=== PATIENT | female | born 1935 | race Two or more races ===

== ENCOUNTER 2018-01-20 20:23 | Inpatient (IN) | payer MEDICARE, BC ==
[2018-01-21 06:08] LABS: ADD UMIC YES; UR ASCORBIC ACID NEGATIVE (NEGATIVE); UR BACTERIA FEW /HPF (NONE SEEN); UR BILIRUBIN (Dip) NEGATIVE (NEGATIVE); UR BLOOD (Dip) NEGATIVE (NEGATIVE); UR CLARITY CLEAR (CLEAR); UR COLOR YELLOW (YELLOW); UR GLUCOSE (Dip) NEGATIVE (NEGATIVE); UR KETONES (Dip) NEGATIVE (NEGATIVE); UR LEUKOCYTE ESTERASE (Dip) NEGATIVE Leu/ul (NEGATIVE); UR NITRITE (Dip) NEGATIVE (NEGATIVE); UR RBC 1 /HPF (0-5); UR SPECIFIC GRAVITY (Dip) 1.009 (1.003-1.030); UR TOTAL PROTEIN (Dip) 2+ mg/dl (NEGATIVE); UR UROBILINOGEN (Dip) NEGATIVE (NEGATIVE); UR WBC 1 /HPF (0-5)
[2018-01-21] MEDS: BISACODYL 10 MG SUPP PR (06:26)
[2018-01-21] MEDS ORDERED: ONDANSETRON 4 MG INJ IV (06:30)
[2018-01-21] MEDS ORDERED: GLUCAGON 1 MG INJ IM (06:30)
[2018-01-21] MEDS ORDERED: GLUCOSE GEL 15 GRAM TUBE BUCCAL (06:30)
[2018-01-21] MEDS ORDERED: GLUCOSE GEL 15 GRAM TUBE PO ×2 (06:30)
[2018-01-21] MEDS ORDERED: MAGNESIUM HYDROXIDE 30ML CUP PO (06:30)
[2018-01-21] MEDS ORDERED: ZOLPIDEM 5 MG TAB PO (06:30)
[2018-01-21] MEDS ORDERED: DEXTROSE 50% 50 ML SYRINGE IV ×2 (06:30)
[2018-01-21 07:00] LABS: ADD MAN DIFF? NO
[2018-01-21] MEDS: Insulin NOVOLOG SS MILD Algorithm (SS with meals and bedtime) SC ×4 (07:05→22:37)
[2018-01-21 07:06] LABS: WHITE BLOOD COUNT 5.9 10^3/ul (4.8-10.8)
[2018-01-21 07:06] LABS: BASOPHILS % 0.3 % (0.0-2.0); EOSINOPHILS # 0.3 10^3/ul (0.0-0.5); EOSINOPHILS % 5.4 % (0.0-7.0); HEMATOCRIT 26.4 % (37.0-47.0); HEMOGLOBIN 8.6 g/dl (12.0-16.0); LYMPHOCYTES # 0.9 10^3/ul (0.8-2.9); LYMPHOCYTES % 14.4 % (15.0-51.0); MEAN CORPUSCULAR HEMOGLOBIN 30.4 pg (29.0-33.0); MEAN CORPUSCULAR HGB CONC 32.6 g/dl (32.0-37.0); MEAN CORPUSCULAR VOLUME 93.3 fl (82.0-101.0); MEAN PLATELET VOLUME 11.5 fl (7.4-10.4); MONOCYTE # 0.8 10^3/ul (0.3-0.9); MONOCYTES % 13.2 % (0.0-11.0); NEUTROPHIL # 3.9 10^3/ul (1.6-7.5); PLATELET COUNT 130 10^3/UL (140-415); RED BLOOD COUNT 2.83 10^6/ul (4.20-5.40); RED CELL DISTRIBUTION WIDTH 17.7 % (11.5-14.5)
[2018-01-21 07:27] LABS: ALANINE AMINOTRANSFERASE 25 IU/L (13-69); ALBUMIN 2.5 g/dl (3.3-4.9); ALKALINE PHOSPHATASE 84 IU/L (42-121); ANION GAP 10 (8-16); ASPARTATE AMINO TRANSFERASE 29 IU/L (15-46); BILIRUBIN,INDIRECT 0.6 mg/dl (0-1.1); BILIRUBIN,TOTAL 0.6 mg/dl (0.2-1.3); BLOOD UREA NITROGEN 40 mg/dl (7-20); CALCIUM 7.4 mg/dl (8.4-10.2); CARBON DIOXIDE 30 mmol/L (21-31); CHLORIDE 99 mmol/L (97-110); CREATININE 2.15 mg/dl (0.44-1.00); GLUCOSE 104 mg/dl (70-220); POTASSIUM 4.2 mmol/L (3.5-5.1); SODIUM 135 mmol/L (135-144)
[2018-01-21] MEDS: CLOPIDOGREL 75 MG TAB PO (09:29)
[2018-01-21] MEDS: FUROSEMIDE 20 MG TAB PO (09:30)
[2018-01-21] MEDS: traMADol 50 MG TAB PO (09:31)
[2018-01-21] MEDS: ISOSORBIDE MONONITRATE(SR)30 MG TAB PO (09:31)
[2018-01-21] MEDS: LINAGLIPTIN 5 MG TABLET PO (09:31)
[2018-01-21] MEDS: DOCUSATE SODIUM 100 MG CAP PO ×2 (09:31→20:32)
[2018-01-21] MEDS: HYDROCODONE/APAP (5/325) TAB PO (10:52)
[2018-01-21] MEDS: PRAMIPEXOLE 0.25 MG TAB PO (20:32)
[2018-01-21] MEDS: BALSAM PERU/CASTOR OIL 60 GM TUBE TOP (20:32)
[2018-01-21] MEDS: ACETAMINOPHEN 325 MG TAB PO (20:43)
[2018-01-22] MEDS: ACCUCHECK 2 AM XX (02:00)
[2018-01-22 07:03] LABS: ADD MAN DIFF? NO
[2018-01-22] MEDS: Insulin NOVOLOG SS MILD Algorithm (SS with meals and bedtime) SC ×4 (07:05→20:23)
[2018-01-22 07:11] LABS: WHITE BLOOD COUNT 7.3 10^3/ul (4.8-10.8)
[2018-01-22 07:11] LABS: BASOPHILS % 0.3 % (0.0-2.0); EOSINOPHILS # 0.3 10^3/ul (0.0-0.5); EOSINOPHILS % 4.6 % (0.0-7.0); HEMATOCRIT 25.2 % (37.0-47.0); HEMOGLOBIN 8.2 g/dl (12.0-16.0); LYMPHOCYTES # 1.4 10^3/ul (0.8-2.9); LYMPHOCYTES % 18.6 % (15.0-51.0); MEAN CORPUSCULAR HEMOGLOBIN 30.5 pg (29.0-33.0); MEAN CORPUSCULAR HGB CONC 32.5 g/dl (32.0-37.0); MEAN CORPUSCULAR VOLUME 93.7 fl (82.0-101.0); MEAN PLATELET VOLUME 11.5 fl (7.4-10.4); MONOCYTES % 14.2 % (0.0-11.0); NEUTROPHIL # 4.5 10^3/ul (1.6-7.5); NEUTROPHILS % 61.3 % (39.0-77.0); PLATELET COUNT 128 10^3/UL (140-415); RED BLOOD COUNT 2.69 10^6/ul (4.20-5.40); RED CELL DISTRIBUTION WIDTH 17.8 % (11.5-14.5)
[2018-01-22 07:50] LABS: ANION GAP 12 (8-16); BLOOD UREA NITROGEN 50 mg/dl (7-20); CALCIUM 7.3 mg/dl (8.4-10.2); CARBON DIOXIDE 26 mmol/L (21-31); CHLORIDE 98 mmol/L (97-110); CREATININE 2.85 mg/dl (0.44-1.00); GLUCOSE 89 mg/dl (70-220); MAGNESIUM 1.9 mg/dl (1.7-2.5); POTASSIUM 4.5 mmol/L (3.5-5.1); SODIUM 131 mmol/L (135-144)
[2018-01-22] MEDS: CLOPIDOGREL 75 MG TAB PO (08:39)
[2018-01-22] MEDS: ISOSORBIDE MONONITRATE(SR)30 MG TAB PO (08:39)
[2018-01-22] MEDS: DOCUSATE SODIUM 100 MG CAP PO ×2 (08:39→20:22)
[2018-01-22] MEDS: FUROSEMIDE 20 MG TAB PO (08:39)
[2018-01-22] MEDS: BALSAM PERU/CASTOR OIL 60 GM TUBE TOP ×2 (08:40→20:25)
[2018-01-22] MEDS: LINAGLIPTIN 5 MG TABLET PO (08:40)
[2018-01-22] MEDS: HYDROCODONE/APAP (5/325) TAB PO ×4 (09:04→20:22)
[2018-01-22] MEDS: INFLUENZA VIRUS VACCINE 0.5 ML (DISPENSING) IM* (09:27)
[2018-01-22] MEDS: MUPIROCIN 2% 22 GM OINT TOP (13:55)
[2018-01-22] MEDS: PRAMIPEXOLE 0.25 MG TAB PO (20:23)
[2018-01-23] MEDS: ACCUCHECK 2 AM XX (02:00)
[2018-01-23 06:38] LABS: ADD MAN DIFF? NO
[2018-01-23 06:48] LABS: BASOPHILS % 0.4 % (0.0-2.0); EOSINOPHILS # 0.3 10^3/ul (0.0-0.5); EOSINOPHILS % 4.5 % (0.0-7.0); HEMATOCRIT 25.5 % (37.0-47.0); HEMOGLOBIN 8.4 g/dl (12.0-16.0); LYMPHOCYTES # 1.2 10^3/ul (0.8-2.9); LYMPHOCYTES % 17.7 % (15.0-51.0); MEAN CORPUSCULAR HEMOGLOBIN 30.8 pg (29.0-33.0); MEAN CORPUSCULAR HGB CONC 32.9 g/dl (32.0-37.0); MEAN CORPUSCULAR VOLUME 93.4 fl (82.0-101.0); MEAN PLATELET VOLUME 11.4 fl (7.4-10.4); MONOCYTE # 0.8 10^3/ul (0.3-0.9); NEUTROPHIL # 4.5 10^3/ul (1.6-7.5); NEUTROPHILS % 64.7 % (39.0-77.0); PLATELET COUNT 141 10^3/UL (140-415); RED BLOOD COUNT 2.73 10^6/ul (4.20-5.40); RED CELL DISTRIBUTION WIDTH 17.5 % (11.5-14.5)
[2018-01-23 06:48] LABS: WHITE BLOOD COUNT 6.9 10^3/ul (4.8-10.8)
[2018-01-23 07:09] LABS: ANION GAP 13 (8-16); BLOOD UREA NITROGEN 66 mg/dl (7-20); CALCIUM 7.5 mg/dl (8.4-10.2); CARBON DIOXIDE 28 mmol/L (21-31); CHLORIDE 96 mmol/L (97-110); GLUCOSE 121 mg/dl (70-220); MAGNESIUM 1.9 mg/dl (1.7-2.5); POTASSIUM 4.4 mmol/L (3.5-5.1); SODIUM 133 mmol/L (135-144)
[2018-01-23] MEDS: morphine 2 MG INJ IV (08:14)
[2018-01-23] MEDS: Insulin NOVOLOG SS MILD Algorithm (SS with meals and bedtime) SC ×4 (08:16→20:49)
[2018-01-23] MEDS: ISOSORBIDE MONONITRATE(SR)30 MG TAB PO (09:11)
[2018-01-23] MEDS: CLOPIDOGREL 75 MG TAB PO (09:11)
[2018-01-23] MEDS: DOCUSATE SODIUM 100 MG CAP PO ×2 (09:11→20:47)
[2018-01-23] MEDS: FUROSEMIDE 20 MG TAB PO (09:11)
[2018-01-23] MEDS: traMADol 50 MG TAB PO (09:12)
[2018-01-23] MEDS: MUPIROCIN 2% 22 GM OINT TOP (09:13)
[2018-01-23] MEDS: BALSAM PERU/CASTOR OIL 60 GM TUBE TOP ×2 (09:13→20:41)
[2018-01-23] MEDS: LINAGLIPTIN 5 MG TABLET PO (09:15)
[2018-01-23] MEDS: HYDROCODONE/APAP (5/325) TAB PO (14:48)
[2018-01-23] MEDS: PRAMIPEXOLE 0.25 MG TAB PO (20:47)
[2018-01-24] MEDS: ACCUCHECK 2 AM XX (02:00)
[2018-01-24 06:29] LABS: ADD MAN DIFF? NO
[2018-01-24 06:36] LABS: BASOPHILS % 0.3 % (0.0-2.0); EOSINOPHILS # 0.3 10^3/ul (0.0-0.5); EOSINOPHILS % 3.5 % (0.0-7.0); HEMATOCRIT 25.6 % (37.0-47.0); HEMOGLOBIN 8.4 g/dl (12.0-16.0); LYMPHOCYTES # 1.5 10^3/ul (0.8-2.9); LYMPHOCYTES % 19.8 % (15.0-51.0); MEAN CORPUSCULAR HEMOGLOBIN 30.8 pg (29.0-33.0); MEAN CORPUSCULAR HGB CONC 32.8 g/dl (32.0-37.0); MEAN CORPUSCULAR VOLUME 93.8 fl (82.0-101.0); MONOCYTE # 0.8 10^3/ul (0.3-0.9); MONOCYTES % 10.5 % (0.0-11.0); NEUTROPHILS % 65.5 % (39.0-77.0); PLATELET COUNT 155 10^3/UL (140-415); RED BLOOD COUNT 2.73 10^6/ul (4.20-5.40); RED CELL DISTRIBUTION WIDTH 17.7 % (11.5-14.5)
[2018-01-24 06:36] LABS: WHITE BLOOD COUNT 7.6 10^3/ul (4.8-10.8)
[2018-01-24] MEDS: Insulin NOVOLOG SS MILD Algorithm (SS with meals and bedtime) SC ×4 (07:05→20:47)
[2018-01-24 07:13] LABS: ANION GAP 12 (8-16); BLOOD UREA NITROGEN 68 mg/dl (7-20); CALCIUM 7.5 mg/dl (8.4-10.2); CARBON DIOXIDE 25 mmol/L (21-31); CHLORIDE 101 mmol/L (97-110); CREATININE 3.35 mg/dl (0.44-1.00); GLUCOSE 108 mg/dl (70-220); MAGNESIUM 1.9 mg/dl (1.7-2.5); PHOSPHORUS 4.9 mg/dl (2.5-4.9); POTASSIUM 4.5 mmol/L (3.5-5.1); SODIUM 133 mmol/L (135-144)
[2018-01-24] MEDS: BALSAM PERU/CASTOR OIL 60 GM TUBE TOP ×2 (09:00→23:02)
[2018-01-24] MEDS: ISOSORBIDE MONONITRATE(SR)30 MG TAB PO (09:26)
[2018-01-24] MEDS: DOCUSATE SODIUM 100 MG CAP PO ×2 (09:26→20:44)
[2018-01-24] MEDS: HYDROCODONE/APAP (5/325) TAB PO ×3 (09:26→17:25)
[2018-01-24] MEDS: LINAGLIPTIN 5 MG TABLET PO (09:27)
[2018-01-24] MEDS: CLOPIDOGREL 75 MG TAB PO (09:27)
[2018-01-24] MEDS: FUROSEMIDE 40 MG TAB PO (09:28)
[2018-01-24] MEDS: MUPIROCIN 2% 22 GM OINT TOP (09:29)
[2018-01-24] MEDS: EPOETIN 3000 UNITS/1 ML INJ (ESRD) SC (17:30)
[2018-01-24] MEDS: PRAMIPEXOLE 0.25 MG TAB PO (20:44)
[2018-01-25] MEDS: ACCUCHECK 2 AM XX (02:00)
[2018-01-25 06:34] LABS: ADD MAN DIFF? NO
[2018-01-25 06:39] LABS: WHITE BLOOD COUNT 7.5 10^3/ul (4.8-10.8)
[2018-01-25 06:39] LABS: BASOPHILS % 0.4 % (0.0-2.0); EOSINOPHILS # 0.3 10^3/ul (0.0-0.5); EOSINOPHILS % 3.9 % (0.0-7.0); HEMATOCRIT 26.3 % (37.0-47.0); HEMOGLOBIN 8.7 g/dl (12.0-16.0); LYMPHOCYTES # 1.3 10^3/ul (0.8-2.9); LYMPHOCYTES % 17.2 % (15.0-51.0); MEAN CORPUSCULAR HEMOGLOBIN 30.7 pg (29.0-33.0); MEAN CORPUSCULAR HGB CONC 33.1 g/dl (32.0-37.0); MEAN CORPUSCULAR VOLUME 92.9 fl (82.0-101.0); MEAN PLATELET VOLUME 10.9 fl (7.4-10.4); MONOCYTE # 0.9 10^3/ul (0.3-0.9); MONOCYTES % 11.9 % (0.0-11.0); NEUTROPHIL # 4.9 10^3/ul (1.6-7.5); NEUTROPHILS % 65.9 % (39.0-77.0); PLATELET COUNT 175 10^3/UL (140-415); RED BLOOD COUNT 2.83 10^6/ul (4.20-5.40); RED CELL DISTRIBUTION WIDTH 17.5 % (11.5-14.5)
[2018-01-25 07:01] LABS: ANION GAP 15 (8-16); BLOOD UREA NITROGEN 73 mg/dl (7-20); CALCIUM 7.9 mg/dl (8.4-10.2); CARBON DIOXIDE 24 mmol/L (21-31); CHLORIDE 103 mmol/L (97-110); CREATININE 3.43 mg/dl (0.44-1.00); GLUCOSE 110 mg/dl (70-220); PHOSPHORUS 5.2 mg/dl (2.5-4.9); POTASSIUM 4.6 mmol/L (3.5-5.1); SODIUM 137 mmol/L (135-144)
[2018-01-25] MEDS: Insulin NOVOLOG SS MILD Algorithm (SS with meals and bedtime) SC ×4 (07:05→20:20)
[2018-01-25] MEDS: HYDROCODONE/APAP (5/325) TAB PO ×3 (08:18→20:19)
[2018-01-25] MEDS: CLOPIDOGREL 75 MG TAB PO (08:18)
[2018-01-25] MEDS: FUROSEMIDE 40 MG TAB PO (08:18)
[2018-01-25] MEDS: ISOSORBIDE MONONITRATE(SR)30 MG TAB PO (08:18)
[2018-01-25] MEDS: DOCUSATE SODIUM 100 MG CAP PO ×2 (08:19→20:19)
[2018-01-25] MEDS: LINAGLIPTIN 5 MG TABLET PO (08:20)
[2018-01-25] MEDS: MUPIROCIN 2% 22 GM OINT TOP (08:20)
[2018-01-25] MEDS: BALSAM PERU/CASTOR OIL 60 GM TUBE TOP ×2 (08:21→20:20)
[2018-01-25] MEDS: PRAMIPEXOLE 0.25 MG TAB PO (20:18)
[2018-01-26] MEDS: ACCUCHECK 2 AM XX (03:00)
[2018-01-26] MEDS: Insulin NOVOLOG SS MILD Algorithm (SS with meals and bedtime) SC ×4 (07:05→20:27)
[2018-01-26 07:19] LABS: ANION GAP 15 (8-16); BLOOD UREA NITROGEN 75 mg/dl (7-20); CARBON DIOXIDE 22 mmol/L (21-31); CHLORIDE 104 mmol/L (97-110); CREATININE 3.31 mg/dl (0.44-1.00); GLUCOSE 90 mg/dl (70-220); PHOSPHORUS 5.5 mg/dl (2.5-4.9); POTASSIUM 4.6 mmol/L (3.5-5.1); SODIUM 136 mmol/L (135-144)
[2018-01-26] MEDS: FUROSEMIDE 40 MG TAB PO (09:25)
[2018-01-26] MEDS: HYDROCODONE/APAP (5/325) TAB PO (09:26)
[2018-01-26] MEDS: CLOPIDOGREL 75 MG TAB PO (09:26)
[2018-01-26] MEDS: LINAGLIPTIN 5 MG TABLET PO (09:27)
[2018-01-26] MEDS: DOCUSATE SODIUM 100 MG CAP PO ×2 (09:27→20:20)
[2018-01-26] MEDS: ISOSORBIDE MONONITRATE(SR)30 MG TAB PO (09:27)
[2018-01-26] MEDS: MUPIROCIN 2% 22 GM OINT TOP (09:28)
[2018-01-26] MEDS: BALSAM PERU/CASTOR OIL 60 GM TUBE TOP ×2 (09:28→20:27)
[2018-01-26] MEDS: SEVELAMER 400 MG TAB PO ×2 (15:02→17:50)
[2018-01-26] MEDS: LACTULOSE 30ML CUP PO (17:50)
[2018-01-26] MEDS: PRAMIPEXOLE 0.25 MG TAB PO (20:20)
[2018-01-27] MEDS: ACCUCHECK 2 AM XX (02:00)
[2018-01-27 08:09] LABS: ANION GAP 13 (8-16); BLOOD UREA NITROGEN 73 mg/dl (7-20); CALCIUM 7.7 mg/dl (8.4-10.2); CARBON DIOXIDE 22 mmol/L (21-31); CHLORIDE 106 mmol/L (97-110); CREATININE 3.15 mg/dl (0.44-1.00); GLUCOSE 93 mg/dl (70-220); MAGNESIUM 1.9 mg/dl (1.7-2.5); PHOSPHORUS 5.3 mg/dl (2.5-4.9); POTASSIUM 4.4 mmol/L (3.5-5.1); SODIUM 137 mmol/L (135-144)
[2018-01-27] MEDS: Insulin NOVOLOG SS MILD Algorithm (SS with meals and bedtime) SC ×4 (08:10→21:00)
[2018-01-27] MEDS: SEVELAMER 400 MG TAB PO ×3 (08:13→17:40)
[2018-01-27] MEDS: HYDROCODONE/APAP (5/325) TAB PO (08:13)
[2018-01-27] MEDS: FUROSEMIDE 40 MG TAB PO (08:14)
[2018-01-27] MEDS: CLOPIDOGREL 75 MG TAB PO (08:14)
[2018-01-27] MEDS: LINAGLIPTIN 5 MG TABLET PO (08:14)
[2018-01-27] MEDS: DOCUSATE SODIUM 100 MG CAP PO ×2 (08:14→20:32)
[2018-01-27] MEDS: MUPIROCIN 2% 22 GM OINT TOP (08:15)
[2018-01-27] MEDS: BALSAM PERU/CASTOR OIL 60 GM TUBE TOP ×2 (08:15→20:32)
[2018-01-27] MEDS: ISOSORBIDE MONONITRATE(SR)30 MG TAB PO (09:00)
[2018-01-27] MEDS: EPOETIN 3000 UNITS/1 ML INJ (ESRD) SC (17:28)
[2018-01-27] MEDS: PRAMIPEXOLE 0.25 MG TAB PO (20:27)
[2018-01-28] MEDS: ACCUCHECK 2 AM XX (02:00)
[2018-01-28] MEDS: HYDROCODONE/APAP (5/325) TAB PO (08:08)
[2018-01-28] MEDS: Insulin NOVOLOG SS MILD Algorithm (SS with meals and bedtime) SC ×4 (08:23→20:52)
[2018-01-28] MEDS: LINAGLIPTIN 5 MG TABLET PO (09:53)
[2018-01-28] MEDS: DOCUSATE SODIUM 100 MG CAP PO ×2 (09:53→20:53)
[2018-01-28] MEDS: CLOPIDOGREL 75 MG TAB PO (09:54)
[2018-01-28] MEDS: FUROSEMIDE 40 MG TAB PO (09:54)
[2018-01-28] MEDS: SEVELAMER 400 MG TAB PO ×3 (09:54→18:11)
[2018-01-28] MEDS: ISOSORBIDE MONONITRATE(SR)30 MG TAB PO (09:54)
[2018-01-28] MEDS: MUPIROCIN 2% 22 GM OINT TOP (09:55)
[2018-01-28] MEDS: BALSAM PERU/CASTOR OIL 60 GM TUBE TOP ×2 (09:55→20:53)
[2018-01-28] MEDS: PRAMIPEXOLE 0.25 MG TAB PO (20:57)
[2018-01-29] MEDS: ACCUCHECK 2 AM XX (02:00)
[2018-01-29] MEDS: Insulin NOVOLOG SS MILD Algorithm (SS with meals and bedtime) SC ×4 (07:05→21:00)
[2018-01-29] MEDS: SEVELAMER 400 MG TAB PO ×3 (08:23→17:10)
[2018-01-29] MEDS: LINAGLIPTIN 5 MG TABLET PO (08:55)
[2018-01-29] MEDS: ISOSORBIDE MONONITRATE(SR)30 MG TAB PO (08:55)
[2018-01-29] MEDS: HYDROCODONE/APAP (5/325) TAB PO (08:55)
[2018-01-29] MEDS: DOCUSATE SODIUM 100 MG CAP PO ×2 (08:55→21:00)
[2018-01-29] MEDS: CLOPIDOGREL 75 MG TAB PO (08:56)
[2018-01-29] MEDS: LACTULOSE 30ML CUP PO (08:56)
[2018-01-29] MEDS: FUROSEMIDE 40 MG TAB PO (08:56)
[2018-01-29] MEDS: BALSAM PERU/CASTOR OIL 60 GM TUBE TOP ×2 (08:59→20:50)
[2018-01-29] MEDS: MUPIROCIN 2% 22 GM OINT TOP (08:59)
[2018-01-29 09:00] LABS: HEMOGLOBIN 8.6 g/dl (12.0-16.0)
[2018-01-29 09:00] LABS: HEMATOCRIT 26.3 % (37.0-47.0)
[2018-01-29] MEDS: EPOETIN 3000 UNITS/1 ML INJ (ESRD) SC (17:10)
[2018-01-29] MEDS: PRAMIPEXOLE 0.25 MG TAB PO (20:48)
[2018-01-30] MEDS: ACCUCHECK 2 AM XX (02:00)
[2018-01-30] MEDS: traMADol 50 MG TAB PO ×2 (05:36→11:37)
[2018-01-30 07:55] LABS: ADD MAN DIFF? NO
[2018-01-30] MEDS: Insulin NOVOLOG SS MILD Algorithm (SS with meals and bedtime) SC ×4 (08:00→20:49)
[2018-01-30 08:06] LABS: WHITE BLOOD COUNT 5.5 10^3/ul (4.8-10.8)
[2018-01-30 08:06] LABS: BASOPHILS % 0.7 % (0.0-2.0); EOSINOPHILS # 0.3 10^3/ul (0.0-0.5); EOSINOPHILS % 5.3 % (0.0-7.0); HEMATOCRIT 26.4 % (37.0-47.0); HEMOGLOBIN 8.5 g/dl (12.0-16.0); LYMPHOCYTES % 18.2 % (15.0-51.0); MEAN CORPUSCULAR HEMOGLOBIN 29.9 pg (29.0-33.0); MEAN CORPUSCULAR HGB CONC 32.2 g/dl (32.0-37.0); MEAN PLATELET VOLUME 10.7 fl (7.4-10.4); MONOCYTE # 0.7 10^3/ul (0.3-0.9); NEUTROPHIL # 3.5 10^3/ul (1.6-7.5); NEUTROPHILS % 63.6 % (39.0-77.0); PLATELET COUNT 208 10^3/UL (140-415); RED BLOOD COUNT 2.84 10^6/ul (4.20-5.40); RED CELL DISTRIBUTION WIDTH 17.3 % (11.5-14.5)
[2018-01-30] MEDS: SEVELAMER 400 MG TAB PO ×3 (08:33→17:08)
[2018-01-30 08:34] LABS: ANION GAP 20 (8-16); BLOOD UREA NITROGEN 79 mg/dl (7-20); CALCIUM 7.9 mg/dl (8.4-10.2); CARBON DIOXIDE 18 mmol/L (21-31); CHLORIDE 108 mmol/L (97-110); CREATININE 3.28 mg/dl (0.44-1.00); GLUCOSE 104 mg/dl (70-220); PHOSPHORUS 5.8 mg/dl (2.5-4.9); POTASSIUM 4.8 mmol/L (3.5-5.1); SODIUM 141 mmol/L (135-144)
[2018-01-30] MEDS: DOCUSATE SODIUM 100 MG CAP PO ×2 (08:34→20:47)
[2018-01-30] MEDS: LINAGLIPTIN 5 MG TABLET PO (08:36)
[2018-01-30] MEDS: CLOPIDOGREL 75 MG TAB PO (08:36)
[2018-01-30] MEDS: FUROSEMIDE 40 MG TAB PO (08:36)
[2018-01-30] MEDS: ISOSORBIDE MONONITRATE(SR)30 MG TAB PO (08:36)
[2018-01-30] MEDS: MUPIROCIN 2% 22 GM OINT TOP ×3 (08:37→15:04)
[2018-01-30] MEDS: BALSAM PERU/CASTOR OIL 60 GM TUBE TOP ×2 (08:37→20:50)
[2018-01-30] MEDS: PRAMIPEXOLE 0.25 MG TAB PO (20:46)
[2018-01-30] MEDS: LACTULOSE 30ML CUP PO (20:52)
[2018-01-31] MEDS: ACCUCHECK 2 AM XX (02:00)
[2018-01-31 06:18] LABS: HEMATOCRIT 24.8 % (37.0-47.0)
[2018-01-31] MEDS: Insulin NOVOLOG SS MILD Algorithm (SS with meals and bedtime) SC ×4 (07:05→20:46)
[2018-01-31] MEDS: DOCUSATE SODIUM 100 MG CAP PO ×2 (09:00→20:38)
[2018-01-31] MEDS: MUPIROCIN 2% 22 GM OINT TOP (09:00)
[2018-01-31] MEDS: BALSAM PERU/CASTOR OIL 60 GM TUBE TOP ×2 (09:00→20:38)
[2018-01-31] MEDS: SEVELAMER 400 MG TAB PO ×3 (09:44→18:54)
[2018-01-31] MEDS: CLOPIDOGREL 75 MG TAB PO (09:45)
[2018-01-31] MEDS: ISOSORBIDE MONONITRATE(SR)30 MG TAB PO (09:45)
[2018-01-31] MEDS: FUROSEMIDE 40 MG TAB PO (09:46)
[2018-01-31] MEDS: LINAGLIPTIN 5 MG TABLET PO (09:46)
[2018-01-31] MEDS: ACETAMINOPHEN 325 MG TAB PO (10:10)
[2018-01-31] MEDS: EPOETIN 3000 UNITS/1 ML INJ (ESRD) SC (18:56)
[2018-01-31] MEDS: PRAMIPEXOLE 0.25 MG TAB PO (20:38)
[2018-02-01] MEDS: ACCUCHECK 2 AM XX (02:00)
[2018-02-01] MEDS: Insulin NOVOLOG SS MILD Algorithm (SS with meals and bedtime) SC ×4 (07:05→20:51)
[2018-02-01 07:15] LABS: ADD MAN DIFF? NO
[2018-02-01 07:19] LABS: BASOPHILS % 0.6 % (0.0-2.0); EOSINOPHILS # 0.3 10^3/ul (0.0-0.5); EOSINOPHILS % 6.3 % (0.0-7.0); HEMATOCRIT 24.7 % (37.0-47.0); HEMOGLOBIN 7.9 g/dl (12.0-16.0); LYMPHOCYTES # 1.2 10^3/ul (0.8-2.9); LYMPHOCYTES % 25.5 % (15.0-51.0); MEAN CORPUSCULAR HEMOGLOBIN 29.9 pg (29.0-33.0); MEAN CORPUSCULAR VOLUME 93.6 fl (82.0-101.0); MEAN PLATELET VOLUME 10.9 fl (7.4-10.4); MONOCYTE # 0.7 10^3/ul (0.3-0.9); MONOCYTES % 13.8 % (0.0-11.0); NEUTROPHIL # 2.6 10^3/ul (1.6-7.5); NEUTROPHILS % 53.6 % (39.0-77.0); PLATELET COUNT 238 10^3/UL (140-415); RED BLOOD COUNT 2.64 10^6/ul (4.20-5.40)
[2018-02-01 07:19] LABS: WHITE BLOOD COUNT 4.8 10^3/ul (4.8-10.8)
[2018-02-01 07:51] LABS: ANION GAP 19 (8-16); BLOOD UREA NITROGEN 81 mg/dl (7-20); CALCIUM 8.1 mg/dl (8.4-10.2); CARBON DIOXIDE 18 mmol/L (21-31); CHLORIDE 108 mmol/L (97-110); CREATININE 3.43 mg/dl (0.44-1.00); GLUCOSE 89 mg/dl (70-220); MAGNESIUM 1.9 mg/dl (1.7-2.5); PHOSPHORUS 5.9 mg/dl (2.5-4.9); POTASSIUM 4.8 mmol/L (3.5-5.1); SODIUM 140 mmol/L (135-144)
[2018-02-01] MEDS: DOCUSATE SODIUM 100 MG CAP PO ×2 (08:23→20:25)
[2018-02-01] MEDS: LINAGLIPTIN 5 MG TABLET PO (08:24)
[2018-02-01] MEDS: CLOPIDOGREL 75 MG TAB PO (08:24)
[2018-02-01] MEDS: FUROSEMIDE 40 MG TAB PO (08:24)
[2018-02-01] MEDS: SEVELAMER 400 MG TAB PO ×3 (08:24→17:36)
[2018-02-01] MEDS: ISOSORBIDE MONONITRATE(SR)30 MG TAB PO (08:25)
[2018-02-01] MEDS: BALSAM PERU/CASTOR OIL 60 GM TUBE TOP ×2 (08:26→20:51)
[2018-02-01] MEDS: MUPIROCIN 2% 22 GM OINT TOP (08:27)
[2018-02-01] MEDS: PRAMIPEXOLE 0.25 MG TAB PO (20:25)
[2018-02-02] MEDS: ACCUCHECK 2 AM XX (02:00)
[2018-02-02] MEDS: Insulin NOVOLOG SS MILD Algorithm (SS with meals and bedtime) SC ×4 (08:15→21:07)
[2018-02-02] MEDS: FUROSEMIDE 40 MG TAB PO (08:22)
[2018-02-02] MEDS: CLOPIDOGREL 75 MG TAB PO (08:22)
[2018-02-02] MEDS: HYDROCODONE/APAP (5/325) TAB PO ×2 (08:22→12:39)
[2018-02-02] MEDS: SEVELAMER 400 MG TAB PO ×3 (08:22→17:44)
[2018-02-02] MEDS: ISOSORBIDE MONONITRATE(SR)30 MG TAB PO (08:23)
[2018-02-02] MEDS: LINAGLIPTIN 5 MG TABLET PO (08:23)
[2018-02-02] MEDS: DOCUSATE SODIUM 100 MG CAP PO ×2 (08:23→21:03)
[2018-02-02] MEDS: BALSAM PERU/CASTOR OIL 60 GM TUBE TOP ×2 (08:24→21:00)
[2018-02-02] MEDS: MUPIROCIN 2% 22 GM OINT TOP (09:00)
[2018-02-02] MEDS: PRAMIPEXOLE 0.25 MG TAB PO (21:03)
[2018-02-03] MEDS: ACCUCHECK 2 AM XX (02:00)
[2018-02-03] MEDS: Insulin NOVOLOG SS MILD Algorithm (SS with meals and bedtime) SC ×4 (08:10→21:00)
[2018-02-03] MEDS: SEVELAMER 400 MG TAB PO ×3 (08:11→18:50)
[2018-02-03] MEDS: FUROSEMIDE 40 MG TAB PO (08:45)
[2018-02-03] MEDS: CLOPIDOGREL 75 MG TAB PO (08:46)
[2018-02-03] MEDS: DOCUSATE SODIUM 100 MG CAP PO ×2 (08:46→21:00)
[2018-02-03] MEDS: ISOSORBIDE MONONITRATE(SR)30 MG TAB PO (08:46)
[2018-02-03] MEDS: LINAGLIPTIN 5 MG TABLET PO (08:46)
[2018-02-03] MEDS: HYDROCODONE/APAP (5/325) TAB PO (08:48)
[2018-02-03] MEDS: BALSAM PERU/CASTOR OIL 60 GM TUBE TOP ×2 (09:00→21:29)
[2018-02-03] MEDS: MUPIROCIN 2% 22 GM OINT TOP (09:00)
[2018-02-03] MEDS: LACTULOSE 30ML CUP PO (12:25)
[2018-02-03] MEDS: EPOETIN 3000 UNITS/1 ML INJ (ESRD) SC (18:51)
[2018-02-03] MEDS: traMADol 50 MG TAB PO (21:28)
[2018-02-03] MEDS: PRAMIPEXOLE 0.25 MG TAB PO (21:28)
[2018-02-04] MEDS: ACCUCHECK 2 AM XX ×2 (02:00→23:36)
[2018-02-04 07:15] LABS: ADD MAN DIFF? NO
[2018-02-04] MEDS: Insulin NOVOLOG SS MILD Algorithm (SS with meals and bedtime) SC ×4 (08:00→20:32)
[2018-02-04] MEDS: ISOSORBIDE MONONITRATE(SR)30 MG TAB PO (08:06)
[2018-02-04] MEDS: SEVELAMER 400 MG TAB PO ×3 (08:06→17:21)
[2018-02-04] MEDS: DOCUSATE SODIUM 100 MG CAP PO ×2 (08:06→20:22)
[2018-02-04] MEDS: LINAGLIPTIN 5 MG TABLET PO (08:07)
[2018-02-04] MEDS: CLOPIDOGREL 75 MG TAB PO (08:07)
[2018-02-04] MEDS: FUROSEMIDE 40 MG TAB PO (08:07)
[2018-02-04 08:08] LABS: ANION GAP 17 (8-16); BLOOD UREA NITROGEN 69 mg/dl (7-20); CALCIUM 8.3 mg/dl (8.4-10.2); CARBON DIOXIDE 18 mmol/L (21-31); CHLORIDE 112 mmol/L (97-110); GLUCOSE 85 mg/dl (70-220); MAGNESIUM 1.8 mg/dl (1.7-2.5); PHOSPHORUS 4.6 mg/dl (2.5-4.9); POTASSIUM 4.8 mmol/L (3.5-5.1); SODIUM 142 mmol/L (135-144)
[2018-02-04] MEDS: BALSAM PERU/CASTOR OIL 60 GM TUBE TOP ×2 (08:08→20:23)
[2018-02-04] MEDS: MUPIROCIN 2% 22 GM OINT TOP (08:08)
[2018-02-04 08:16] LABS: WHITE BLOOD COUNT 4.9 10^3/ul (4.8-10.8)
[2018-02-04 08:16] LABS: BASOPHIL # 0.1 10^3/ul (0.0-0.1); BASOPHILS % 1.2 % (0.0-2.0); EOSINOPHILS # 0.4 10^3/ul (0.0-0.5); EOSINOPHILS % 7.6 % (0.0-7.0); HEMATOCRIT 29.4 % (37.0-47.0); HEMOGLOBIN 9.3 g/dl (12.0-16.0); LYMPHOCYTES # 1.3 10^3/ul (0.8-2.9); LYMPHOCYTES % 26.3 % (15.0-51.0); MEAN CORPUSCULAR HEMOGLOBIN 29.5 pg (29.0-33.0); MEAN CORPUSCULAR HGB CONC 31.6 g/dl (32.0-37.0); MEAN CORPUSCULAR VOLUME 93.3 fl (82.0-101.0); MEAN PLATELET VOLUME 10.7 fl (7.4-10.4); MONOCYTE # 0.6 10^3/ul (0.3-0.9); MONOCYTES % 12.7 % (0.0-11.0); NEUTROPHIL # 2.5 10^3/ul (1.6-7.5); PLATELET COUNT 288 10^3/UL (140-415); RED BLOOD COUNT 3.15 10^6/ul (4.20-5.40); RED CELL DISTRIBUTION WIDTH 16.9 % (11.5-14.5)
[2018-02-04] MEDS: traMADol 50 MG TAB PO ×2 (08:16→20:26)
[2018-02-04] MEDS: HYDROCODONE/APAP (5/325) TAB PO (12:59)
[2018-02-04] MEDS: PRAMIPEXOLE 0.25 MG TAB PO (20:23)
[2018-02-05] MEDS: Insulin NOVOLOG SS MILD Algorithm (SS with meals and bedtime) SC ×4 (08:10→21:38)
[2018-02-05] MEDS: SEVELAMER 400 MG TAB PO ×3 (08:16→17:28)
[2018-02-05] MEDS: CLOPIDOGREL 75 MG TAB PO (08:16)
[2018-02-05] MEDS: LINAGLIPTIN 5 MG TABLET PO (08:16)
[2018-02-05] MEDS: ISOSORBIDE MONONITRATE(SR)30 MG TAB PO (08:16)
[2018-02-05] MEDS: HYDROCODONE/APAP (5/325) TAB PO ×3 (08:17→19:38)
[2018-02-05] MEDS: DOCUSATE SODIUM 100 MG CAP PO ×2 (08:17→21:36)
[2018-02-05] MEDS: FUROSEMIDE 40 MG TAB PO (08:18)
[2018-02-05] MEDS: BALSAM PERU/CASTOR OIL 60 GM TUBE TOP ×2 (08:19→21:41)
[2018-02-05] MEDS: MUPIROCIN 2% 22 GM OINT TOP (09:00)
[2018-02-05 09:36] LABS: HEMOGLOBIN 9.4 g/dl (12.0-16.0)
[2018-02-05 09:36] LABS: HEMATOCRIT 30.6 % (37.0-47.0)
[2018-02-05] MEDS: EPOETIN 3000 UNITS/1 ML INJ (ESRD) SC (17:29)
[2018-02-05] MEDS: PRAMIPEXOLE 0.25 MG TAB PO (21:36)
[2018-02-06] MEDS: ACCUCHECK 2 AM XX (02:00)
[2018-02-06] MEDS: Insulin NOVOLOG SS MILD Algorithm (SS with meals and bedtime) SC ×4 (07:05→21:00)
[2018-02-06 07:25] LABS: ADD MAN DIFF? NO
[2018-02-06 07:31] LABS: BASOPHILS % 0.8 % (0.0-2.0); EOSINOPHILS # 0.4 10^3/ul (0.0-0.5); EOSINOPHILS % 7.9 % (0.0-7.0); HEMATOCRIT 28.6 % (37.0-47.0); HEMOGLOBIN 8.9 g/dl (12.0-16.0); LYMPHOCYTES # 1.4 10^3/ul (0.8-2.9); LYMPHOCYTES % 27.6 % (15.0-51.0); MEAN CORPUSCULAR HEMOGLOBIN 29.6 pg (29.0-33.0); MEAN CORPUSCULAR HGB CONC 31.1 g/dl (32.0-37.0); MEAN PLATELET VOLUME 10.8 fl (7.4-10.4); MONOCYTE # 0.7 10^3/ul (0.3-0.9); MONOCYTES % 13.6 % (0.0-11.0); NEUTROPHIL # 2.5 10^3/ul (1.6-7.5); NEUTROPHILS % 49.7 % (39.0-77.0); PLATELET COUNT 262 10^3/UL (140-415); RED BLOOD COUNT 3.01 10^6/ul (4.20-5.40); RED CELL DISTRIBUTION WIDTH 17.2 % (11.5-14.5)
[2018-02-06 07:31] LABS: WHITE BLOOD COUNT 4.9 10^3/ul (4.8-10.8)
[2018-02-06 07:50] LABS: ANION GAP 20 (8-16); BLOOD UREA NITROGEN 76 mg/dl (7-20); CALCIUM 8.5 mg/dl (8.4-10.2); CARBON DIOXIDE 16 mmol/L (21-31); CHLORIDE 111 mmol/L (97-110); GLUCOSE 92 mg/dl (70-220); MAGNESIUM 1.7 mg/dl (1.7-2.5); PHOSPHORUS 4.7 mg/dl (2.5-4.9); POTASSIUM 5.6 mmol/L (3.5-5.1); SODIUM 141 mmol/L (135-144)
[2018-02-06] MEDS: SEVELAMER 400 MG TAB PO ×3 (09:48→17:56)
[2018-02-06] MEDS: DOCUSATE SODIUM 100 MG CAP PO ×2 (09:52→21:00)
[2018-02-06] MEDS: CLOPIDOGREL 75 MG TAB PO (09:52)
[2018-02-06] MEDS: LINAGLIPTIN 5 MG TABLET PO (09:54)
[2018-02-06] MEDS: ISOSORBIDE MONONITRATE(SR)30 MG TAB PO (09:58)
[2018-02-06] MEDS: FUROSEMIDE 40 MG TAB PO (10:02)
[2018-02-06] MEDS: NA POLYST SULFON 15 GM/60 ML BTL PO (10:25)
[2018-02-06] MEDS: NA BICARBONATE 650 MG TAB PO ×2 (12:49→21:00)
[2018-02-06] MEDS: BALSAM PERU/CASTOR OIL 60 GM TUBE TOP ×2 (13:25→21:56)
[2018-02-06 16:52] LABS: OCCULT BLOOD STOOL NEGATIVE (NEGATIVE)
[2018-02-06] MEDS: MUPIROCIN 2% 22 GM OINT TOP (17:51)
[2018-02-06 18:30] LABS: ANION GAP 23 (8-16); BLOOD UREA NITROGEN 72 mg/dl (7-20); CALCIUM 8.8 mg/dl (8.4-10.2); CARBON DIOXIDE 17 mmol/L (21-31); CHLORIDE 111 mmol/L (97-110); CREATININE 3.03 mg/dl (0.44-1.00); GLUCOSE 113 mg/dl (70-220); POTASSIUM 4.8 mmol/L (3.5-5.1); SODIUM 146 mmol/L (135-144)
[2018-02-06] MEDS: PRAMIPEXOLE 0.25 MG TAB PO (21:53)
[2018-02-07] MEDS: ACCUCHECK 2 AM XX (01:15)
[2018-02-07] MEDS: Insulin NOVOLOG SS MILD Algorithm (SS with meals and bedtime) SC ×4 (07:05→20:45)
[2018-02-07 07:31] LABS: ADD MAN DIFF? NO
[2018-02-07 07:38] LABS: WHITE BLOOD COUNT 5.3 10^3/ul (4.8-10.8)
[2018-02-07 07:38] LABS: BASOPHILS % 0.7 % (0.0-2.0); EOSINOPHILS # 0.3 10^3/ul (0.0-0.5); EOSINOPHILS % 5.8 % (0.0-7.0); HEMATOCRIT 30.7 % (37.0-47.0); HEMOGLOBIN 9.8 g/dl (12.0-16.0); LYMPHOCYTES # 1.5 10^3/ul (0.8-2.9); LYMPHOCYTES % 28.3 % (15.0-51.0); MEAN CORPUSCULAR HEMOGLOBIN 29.8 pg (29.0-33.0); MEAN CORPUSCULAR HGB CONC 31.9 g/dl (32.0-37.0); MEAN CORPUSCULAR VOLUME 93.3 fl (82.0-101.0); MEAN PLATELET VOLUME 10.3 fl (7.4-10.4); MONOCYTE # 0.6 10^3/ul (0.3-0.9); MONOCYTES % 11.6 % (0.0-11.0); NEUTROPHIL # 2.8 10^3/ul (1.6-7.5); NEUTROPHILS % 53.2 % (39.0-77.0); PLATELET COUNT 275 10^3/UL (140-415); RED BLOOD COUNT 3.29 10^6/ul (4.20-5.40); RED CELL DISTRIBUTION WIDTH 17.4 % (11.5-14.5)
[2018-02-07] MEDS: SEVELAMER 400 MG TAB PO ×3 (07:58→18:27)
[2018-02-07 08:20] LABS: ANION GAP 19 (8-16); BLOOD UREA NITROGEN 75 mg/dl (7-20); CALCIUM 8.5 mg/dl (8.4-10.2); CARBON DIOXIDE 17 mmol/L (21-31); CHLORIDE 114 mmol/L (97-110); CREATININE 2.95 mg/dl (0.44-1.00); GLUCOSE 104 mg/dl (70-220); MAGNESIUM 1.6 mg/dl (1.7-2.5); PHOSPHORUS 4.6 mg/dl (2.5-4.9); POTASSIUM 4.3 mmol/L (3.5-5.1); SODIUM 146 mmol/L (135-144)
[2018-02-07] MEDS: LINAGLIPTIN 5 MG TABLET PO (08:37)
[2018-02-07] MEDS: FUROSEMIDE 40 MG TAB PO (08:38)
[2018-02-07] MEDS: NA BICARBONATE 650 MG TAB PO ×2 (08:39→20:45)
[2018-02-07] MEDS: CLOPIDOGREL 75 MG TAB PO (08:39)
[2018-02-07] MEDS: ISOSORBIDE MONONITRATE(SR)30 MG TAB PO (08:39)
[2018-02-07] MEDS: DOCUSATE SODIUM 100 MG CAP PO ×2 (08:39→20:44)
[2018-02-07] MEDS: HYDROCODONE/APAP (5/325) TAB PO ×3 (08:40→20:44)
[2018-02-07] MEDS: BALSAM PERU/CASTOR OIL 60 GM TUBE TOP ×2 (09:00→20:46)
[2018-02-07] MEDS: MUPIROCIN 2% 22 GM OINT TOP (09:00)
[2018-02-07] MEDS: EPOETIN 3000 UNITS/1 ML INJ (ESRD) SC (18:27)
[2018-02-07] MEDS: PRAMIPEXOLE 0.25 MG TAB PO (20:44)
[2018-02-08] MEDS: ACCUCHECK 2 AM XX (02:00)
[2018-02-08 07:33] LABS: ADD MAN DIFF? NO
[2018-02-08 07:40] LABS: WHITE BLOOD COUNT 4.9 10^3/ul (4.8-10.8)
[2018-02-08 07:40] LABS: BASOPHIL # 0.1 10^3/ul (0.0-0.1); BASOPHILS % 1.4 % (0.0-2.0); EOSINOPHILS # 0.5 10^3/ul (0.0-0.5); EOSINOPHILS % 9.5 % (0.0-7.0); HEMATOCRIT 29.9 % (37.0-47.0); HEMOGLOBIN 9.5 g/dl (12.0-16.0); LYMPHOCYTES # 1.5 10^3/ul (0.8-2.9); LYMPHOCYTES % 30.1 % (15.0-51.0); MEAN CORPUSCULAR HEMOGLOBIN 29.8 pg (29.0-33.0); MEAN CORPUSCULAR HGB CONC 31.8 g/dl (32.0-37.0); MEAN CORPUSCULAR VOLUME 93.7 fl (82.0-101.0); MEAN PLATELET VOLUME 10.7 fl (7.4-10.4); MONOCYTE # 0.6 10^3/ul (0.3-0.9); MONOCYTES % 11.5 % (0.0-11.0); NEUTROPHIL # 2.3 10^3/ul (1.6-7.5); NEUTROPHILS % 47.1 % (39.0-77.0); PLATELET COUNT 258 10^3/UL (140-415); RED BLOOD COUNT 3.19 10^6/ul (4.20-5.40); RED CELL DISTRIBUTION WIDTH 17.3 % (11.5-14.5)
[2018-02-08 07:58] LABS: ANION GAP 18 (8-16); BLOOD UREA NITROGEN 72 mg/dl (7-20); CALCIUM 8.5 mg/dl (8.4-10.2); CARBON DIOXIDE 17 mmol/L (21-31); CHLORIDE 111 mmol/L (97-110); CREATININE 2.96 mg/dl (0.44-1.00); GLUCOSE 85 mg/dl (70-220); MAGNESIUM 1.6 mg/dl (1.7-2.5); PHOSPHORUS 4.9 mg/dl (2.5-4.9); POTASSIUM 4.5 mmol/L (3.5-5.1); SODIUM 141 mmol/L (135-144)
[2018-02-08] MEDS: Insulin NOVOLOG SS MILD Algorithm (SS with meals and bedtime) SC ×4 (08:27→20:41)
[2018-02-08] MEDS: SEVELAMER 400 MG TAB PO ×3 (08:28→18:03)
[2018-02-08] MEDS: CLOPIDOGREL 75 MG TAB PO (09:12)
[2018-02-08] MEDS: DOCUSATE SODIUM 100 MG CAP PO ×2 (09:12→20:42)
[2018-02-08] MEDS: LINAGLIPTIN 5 MG TABLET PO (09:13)
[2018-02-08] MEDS: ISOSORBIDE MONONITRATE(SR)30 MG TAB PO (09:13)
[2018-02-08] MEDS: FUROSEMIDE 40 MG TAB PO (09:14)
[2018-02-08] MEDS: NA BICARBONATE 650 MG TAB PO ×2 (09:14→20:42)
[2018-02-08] MEDS: HYDROCODONE/APAP (5/325) TAB PO ×2 (09:15→16:02)
[2018-02-08] MEDS: MUPIROCIN 2% 22 GM OINT TOP (09:16)
[2018-02-08] MEDS: BALSAM PERU/CASTOR OIL 60 GM TUBE TOP ×2 (12:42→20:45)
[2018-02-08] MEDS: PRAMIPEXOLE 0.25 MG TAB PO (20:42)
[2018-02-09] MEDS: ACCUCHECK 2 AM XX (02:00)
[2018-02-09] MEDS: Insulin NOVOLOG SS MILD Algorithm (SS with meals and bedtime) SC ×4 (07:05→20:58)
[2018-02-09] MEDS: SEVELAMER 400 MG TAB PO ×3 (07:46→17:29)
[2018-02-09] MEDS: NA BICARBONATE 650 MG TAB PO ×2 (07:47→20:57)
[2018-02-09] MEDS: DOCUSATE SODIUM 100 MG CAP PO ×2 (07:51→20:58)
[2018-02-09] MEDS: ISOSORBIDE MONONITRATE(SR)30 MG TAB PO (07:51)
[2018-02-09] MEDS: CLOPIDOGREL 75 MG TAB PO (07:52)
[2018-02-09] MEDS: BALSAM PERU/CASTOR OIL 60 GM TUBE TOP ×2 (07:52→21:00)
[2018-02-09] MEDS: FUROSEMIDE 40 MG TAB PO (07:52)
[2018-02-09] MEDS: LINAGLIPTIN 5 MG TABLET PO (07:52)
[2018-02-09] MEDS: MUPIROCIN 2% 22 GM OINT TOP (09:34)
[2018-02-09] MEDS: PRAMIPEXOLE 0.25 MG TAB PO (20:57)
[2018-02-10] MEDS: ACCUCHECK 2 AM XX (02:00)
[2018-02-10] MEDS: Insulin NOVOLOG SS MILD Algorithm (SS with meals and bedtime) SC ×2 (07:05→12:15)
[2018-02-10] MEDS: SEVELAMER 400 MG TAB PO ×2 (07:48→12:00)
[2018-02-10] MEDS: NA BICARBONATE 650 MG TAB PO (08:10)
[2018-02-10] MEDS: BALSAM PERU/CASTOR OIL 60 GM TUBE TOP (08:10)
[2018-02-10] MEDS: FUROSEMIDE 40 MG TAB PO (08:10)
[2018-02-10] MEDS: DOCUSATE SODIUM 100 MG CAP PO (08:10)
[2018-02-10] MEDS: LINAGLIPTIN 5 MG TABLET PO (08:10)
[2018-02-10] MEDS: ISOSORBIDE MONONITRATE(SR)30 MG TAB PO (08:11)
[2018-02-10] MEDS: CLOPIDOGREL 75 MG TAB PO (08:11)
[2018-02-10] MEDS: MUPIROCIN 2% 22 GM OINT TOP (08:11)
[2018-02-10] MEDS: traMADol 50 MG TAB PO (08:14)
== END 2018-02-10 12:30 | disposition home health service (06) | DRG 560 ==
LOC: VRC 20:23
PROC: F08Z1ZZ Dressing Techniques Treatment (ICD-10-PCS; principal; 2018-01-20)
PROC: F08Z0ZZ Bathing/Showering Techniques Treatment (ICD-10-PCS; 2018-01-20)
PROC: F08Z2ZZ Grooming/Personal Hygiene Treatment (ICD-10-PCS; 2018-01-20)
PROC: F07Z5ZZ Bed Mobility Treatment (ICD-10-PCS; 2018-01-20)
PROC: F07Z8ZZ Transfer Training Treatment (ICD-10-PCS; 2018-01-20)
PROC: F07Z9ZZ Gait Training/Functional Ambulation Treatment (ICD-10-PCS; 2018-01-20)
PROC: F07Z4ZZ Wheelchair Mobility Treatment (ICD-10-PCS; 2018-01-20)
DX: S72.141D Displaced intertrochanteric fracture of right femur, subsequent encounter for closed fracture with routine healing (principal); N17.9 Acute kidney failure, unspecified; I12.0 Hypertensive chronic kidney disease with stage 5 chronic kidney disease or end stage renal disease; E87.2 Acidosis; N18.4 Chronic kidney disease, stage 4 (severe); W19.XXXD Unspecified fall, subsequent encounter; D64.9 Anemia, unspecified; M89.9 Disorder of bone, unspecified; E83.9 Disorder of mineral metabolism, unspecified; I25.10 Atherosclerotic heart disease of native coronary artery without angina pectoris; E11.22 Type 2 diabetes mellitus with diabetic chronic kidney disease; G25.81 Restless legs syndrome; G47.00 Insomnia, unspecified; G89.29 Other chronic pain; Z99.2 Dependence on renal dialysis; Z95.0 Presence of cardiac pacemaker; Z98.1 Arthrodesis status; M19.012 Primary osteoarthritis, left shoulder; M19.011 Primary osteoarthritis, right shoulder; E87.70 Fluid overload, unspecified; E87.5 Hyperkalemia; E87.6 Hypokalemia; S81.802D Unspecified open wound, left lower leg, subsequent encounter; X58.XXXD Exposure to other specified factors, subsequent encounter
CPT/HCPCS: 80048; 80053; 81001; 82270; 82962; 83735; 84100; 85014; 85018; 85025; 87081; 87086; 93971; 97110; 97112; 97116; 97150; 97163; 97530; 97535; 97542